=== PATIENT | female | born 2000 | race Caucasian/White ===

== ENCOUNTER 2021-03-10 19:31 | Emergency (ER) | payer OTHER ==
[~2021-03-10] VITALS: Ht 162.6 cm; Wt 144.0 kg
[2021-03-10] MEDS ORDERED: ALBUTEROL 6.7GM HFA INHALER ORI ONE (20:15)
[2021-03-10] MEDS ORDERED: ACETAMINOPHEN 325MG TABLET PO ONE (20:15)
[2021-03-10] MEDS ORDERED: ALBU6.7H9 INH (22:22)
[2021-03-10] MEDS ORDERED: ACET-2708 MT (22:22)
[2021-03-10] MEDS ORDERED: AZIT500T8 MT (22:22)
[2021-03-10] MEDS ORDERED: AZITHROMYCIN 500 MG TABLET PO ONE (22:30)
[2021-03-10 23:04] VITALS: BP 112/76
== END 2021-03-10 23:06 | disposition home or self-care (01) ==
LOC: ER 19:31
DX: U07.1 COVID-19 (principal); B34.9 Viral infection, unspecified; Z13.9 Encounter for screening, unspecified
CPT/HCPCS: 71045; 87426; 99284